=== PATIENT | male | born 1965 | race Caucasian/White ===

== ENCOUNTER 2016-11-21 16:06 | Emergency (ER) | payer SELFPAY ==
[~2016-11-21 16:06] MED LIST: ARTIFICIAL TEAR15 M1 BOTH EYES; BACTRIM,SEPT1 TABLET PO; GARAMYCIN5 M1 BOTH EYES; LIBRIUM25 MG PO; NAPROSYN500 MG PO; NAPROXEN500 MG PO; NORVASC10 MG PO; PERCOCET 5/31 TABLET PO; ULTRAM50 MG PO; ZADITOR 0.100 DROP/5 BOTH EYES; ZOFRAN ODT4 MG PO
== END 2016-11-21 17:32 | disposition left against medical advice (07) ==
LOC: EME 16:06
DX: M79.672 Pain in left foot (principal); Z53.21 Procedure and treatment not carried out due to patient leaving prior to being seen by health care provider

== ENCOUNTER 2017-01-01 13:26 | Emergency (ER) | payer SELFPAY ==
[~2017-01-01] VITALS: Ht 177.8 cm; Wt 140.0 kg
[2017-01-01 13:50] LABS: EOSINOPHIL (%) 1.2 % (0-5); EOSINOPHIL COUNT 0.1 K/uL (0-0.3); HEMATOCRIT 45.3 % (38.0-50.0); IMMATURE GRANULOCYTE (%) 0.8 % (0.0-0.7); IMMATURE GRANULOCYTE COUNT 0.1 K/uL; INSTRUMENT ABS NEUTROPHIL CT 5.7 K/uL; LYMPHOCYTE COUNT 2.1 K/uL (1.0-2.8); MCH 36.6 PG (29.0-34.0); MCHC 34.2 G/DL (30.0-36.0); MCV 107.1 FL (86-99); MEAN PLAT.VOLUME 9.3 uM^3 (9.0-12.4); MONOCYTE (%) 10.4 % (3-12); MONOCYTE COUNT 0.9 K/uL (0-0.8); NEUTROPHIL (%) 64.1 % (45-76); NEUTROPHIL COUNT 5.7 K/uL (1.8-6.4); PLATELET COUNT 157 K/uL (156-360); RBC DIS.WIDTH-SD 51.3 % (39-53); RED BLOOD COUNT 4.23 M/uL (4.00-5.50); WHITE BLOOD COUNT 8.9 K/uL (4.1-10.2)
[2017-01-01 14:01] LABS: CHLORIDE 104 mEq/L (99-109); POTASSIUM 4.1 mEq/L (3.7-5.4); SODIUM 139 mEq/L (136-147)
[2017-01-01 14:03] LABS: GLUCOSE 104 mg/dL (70-99)
[2017-01-01 14:04] LABS: ANION GAP 8 MEQ/L (2-14)
[2017-01-01 14:07] LABS: ALKALINE PHOSPHATASE 64 IU/L (3-129); GFR ESTIMATE (CALCULATED) > 59 mL/min/
[2017-01-01 14:08] LABS: UREA NITROGEN (BUN) 19 mg/dL (9-23)
[2017-01-01 14:10] LABS: URIC ACID 10.6 mg/dL (3.1-9.2)
[2017-01-01] MEDS ORDERED: NAPROSYN500 MG PO (17:54)
[2017-01-01] MEDS ORDERED: PERCOCET 5/31 TABLET PO (17:54)
[2017-01-01] MEDS ORDERED: KEFLEX500 MG PO (17:54)
[2017-01-01 18:41] VITALS: BP 149/78
== END 2017-01-01 18:45 | disposition home or self-care (01) ==
LOC: EME 13:26
PROVIDERS: Emergency Medicine
DX: M79.672 Pain in left foot (principal); J45.909 Unspecified asthma, uncomplicated; Z87.442 Personal history of urinary calculi; Z86.718 Personal history of other venous thrombosis and embolism; F17.200 Nicotine dependence, unspecified, uncomplicated
CPT/HCPCS: 73630; 80053; 83605; 84550; 85025; 93971; 99281; 99285; J0690; J1885; J3010; J7050

== ENCOUNTER 2018-01-21 11:06 | Observation (INO) | payer SELFPAY ==
[~2018-01-21] VITALS: Ht 177.8 cm; Wt 127.7 kg
[~2018-01-21 11:06] MED LIST changes: +ADVAIR HFA120 INHALA IH; +COMBIVENT RESPIM4 GM IH; +DAILY VALUE1 EACH PO; +FOLIC ACID1 MG PO; +FUROSEMIDE40 MG PO; +INCRUSE ELLI62.5 MCG IH; +KEFLEX500 MG PO; +LISINOPRIL20 MG PO; +NICOTINE PATCH1 EAC2 TD; +PREDNISONE10 MG PO; +SPIRIVA RESPIMAT4 GM IH; +SYMBICORT60 INHALAT IH; +THEOPHYLLINE400 MG PO; +THIAMINE HCL100 MG PO; +VENTOLIN HFA18 GM IH
[2018-01-21 11:47] LABS: HEMOGLOBIN 13.9 G/DL (12.5-16.6); MCH 36.2 PG (29.0-34.0); MCHC 33.9 G/DL (30.0-36.0); MCV 106.8 FL (86-99); PLATELET COUNT 154 K/uL (156-360); RBC DIS.WIDTH-CV 13.2 % (11.8-14.6); RBC DIS.WIDTH-SD 51.9 % (39-53); RED BLOOD COUNT 3.84 M/uL (4.00-5.50); WHITE BLOOD COUNT 8.3 K/uL (4.1-10.2)
[2018-01-21 11:56] LABS: CHLORIDE 105 mEq/L (99-109); SODIUM 142 mEq/L (136-147)
[2018-01-21 11:58] LABS: GLUCOSE 103 mg/dL (70-99)
[2018-01-21 12:01] LABS: CREATININE 1.7 mg/dL (0.6-1.3); GFR ESTIMATE (CALCULATED) 45 mL/min/ (58.99-99999)
[2018-01-21 12:02] LABS: UREA NITROGEN (BUN) 40 mg/dL (9-23)
[2018-01-21 12:07] LABS: TROP-I INTERPRETATION NEGATIVE; TROPONIN-I 0.03 ng/mL (0.0-0.30)
[2018-01-21 14:38] LABS: APPEARANCE CLEAR ((CLEAR)); BILIRUBIN NEGATIVE; BLOOD SMALL; COLOR STRAW ((YELLOW)); GLUCOSE (STRIP) NEGATIVE; KETONES NEGATIVE; LEUKOCYTES NEGATIVE; NITRITE NEGATIVE; PROTEIN (STRIP) NEGATIVE; SPECIFIC GRAVITY 1.013 (1.000-1.030); UROBILINOGEN 0.2 MG/DL (0.2-1.0)
[2018-01-21 14:48] LABS: BACTERIA NONE SEEN /HPF; EPITHELIAL CELLS RARE /HPF; HYALINE CASTS 0-5 /LPF; MUCUS TRACE /LPF; RED BLOOD CELLS 0-5 /HPF (0-5); UCUL ADDED? NO; WHITE BLOOD CELLS 0-5 /HPF (0-5)
[2018-01-21 15:05] LABS: TROP-I INTERPRETATION NEGATIVE; TROPONIN-I 0.04 ng/mL (0.0-0.30)
[2018-01-21] MEDS ORDERED: LISINOPRIL20 MG PO (15:59)
[2018-01-21] MEDS ORDERED: DULERA 200 MCG/13 GM IH (16:00)
[2018-01-21] MEDS ORDERED: THEOPHYLLINE600 MG PO (16:01)
[2018-01-21 16:28] LABS: MAGNESIUM 2.1 mg/dL (1.3-2.7)
[2018-01-21 16:31] VITALS: BP 141/95
[2018-01-21 19:02] VITALS: BP 147/69
[2018-01-21 23:04] VITALS: BP 142/93
[2018-01-21 23:08] LABS: TROP-I INTERPRETATION NEGATIVE; TROPONIN-I 0.06 ng/mL (0.0-0.30)
[2018-01-22 04:24] VITALS: BP 143/91
[2018-01-22 05:55] LABS: HEMATOCRIT 37.6 % (38.0-50.0); HEMOGLOBIN 12.5 G/DL (12.5-16.6); MCH 35.6 PG (29.0-34.0); MCHC 33.2 G/DL (30.0-36.0); MCV 107.1 FL (86-99); PLATELET COUNT 158 K/uL (156-360); RBC DIS.WIDTH-CV 13.3 % (11.8-14.6); RBC DIS.WIDTH-SD 52.3 % (39-53); RED BLOOD COUNT 3.51 M/uL (4.00-5.50); WHITE BLOOD COUNT 9.4 K/uL (4.1-10.2)
[2018-01-22 06:21] LABS: ALBUMIN 3.6 G/DL (3.2-4.8); ALKALINE PHOSPHATASE 53 IU/L (3-129); ALT (GPT) 14 IU/L (3-49); AST (GOT) 15 IU/L (2-34); CHLORIDE 107 MEQ/L (99-109); GFR ESTIMATE (CALCULATED) > 59 mL/min/ (58.99-99999); GLUCOSE 84 mg/dL (70-99); POTASSIUM 4.5 MEQ/L (3.7-5.4); SODIUM 140 MEQ/L (136-147); TOTAL BILIRUBIN 0.6 MG/DL (0.0-1.0); UREA NITROGEN (BUN) 33 mg/dL (9-23)
[2018-01-22 06:38] LABS: CREATININE 1.2 MG/DL (0.6-1.3)
[2018-01-22 08:31] VITALS: BP 143/69
[2018-01-22 11:11] VITALS: BP 156/77
[2018-01-22] MEDS ORDERED: ASPIR-LOW81 MG PO (14:14)
[2018-01-22 15:20] VITALS: BP 153/79
== END 2018-01-22 16:51 | disposition home or self-care (01) ==
LOC: EME 11:06 → EDOF 15:17 → 5WEST 15:17 → ENRESERV 15:19 → 5WEST 16:23
PROVIDERS: Hospitalist; Physician Assistant; Physician Assistant Medical
DX: R07.9 Chest pain, unspecified (principal); M79.605 Pain in left leg; M79.604 Pain in right leg; Z86.718 Personal history of other venous thrombosis and embolism; F10.20 Alcohol dependence, uncomplicated; N17.9 Acute kidney failure, unspecified; E87.5 Hyperkalemia; F17.210 Nicotine dependence, cigarettes, uncomplicated; E66.01 Morbid (severe) obesity due to excess calories; Z82.49 Family history of ischemic heart disease and other diseases of the circulatory system; I10 Essential (primary) hypertension; J44.9 Chronic obstructive pulmonary disease, unspecified; I71.2 Thoracic aortic aneurysm, without rupture; I87.8 Other specified disorders of veins; R91.8 Other nonspecific abnormal finding of lung field
CPT/HCPCS: 71046; 71275; 76775; 80048; 80053; 81003; 82948; 83735; 84132 91; 84484; 85027; 93005; 93925; 93970; 94640; 94640 76; 94799; 99202; 99281; 99285; G0378; J0610; J1650; J1815; J2060; J2270; J3010; J7030; J7050

== ENCOUNTER → 2018-01-30 | Outpatient (CLI) | payer SELFPAY ==
[~2018-01-30] MED LIST changes: +ASPIR-LOW81 MG PO; +DULERA 200 MCG/13 GM IH; +THEOPHYLLINE600 MG PO
== END | disposition home or self-care (01) ==
LOC: NUC 09:11
DX: R94.39 Abnormal result of other cardiovascular function study (principal)
CPT/HCPCS: 78452; 93017; A9500; J2785

== ENCOUNTER → 2018-03-19 | Outpatient (CLI) | payer SELFPAY | END | disposition home or self-care (01) | LOC: RAD 14:58 | DX: I71.2 Thoracic aortic aneurysm, without rupture (principal) | CPT/HCPCS: 71250 ==

== ENCOUNTER 2018-05-04 10:48 | Inpatient (IN) | payer SELFPAY ==
[~2018-05-04] VITALS: Ht 177.8 cm; Wt 132.4 kg
[2018-05-04 11:51] LABS: BASOPHIL (%) 0.7 % (0-1); BASOPHIL COUNT 0.1 K/uL (0-0.1); EOSINOPHIL (%) 2.3 % (0-5); EOSINOPHIL COUNT 0.2 K/uL (0-0.3); HEMATOCRIT 37.7 % (38.0-50.0); HEMOGLOBIN 12.8 G/DL (12.5-16.6); IMMATURE GRANULOCYTE (%) 0.7 % (0.0-0.7); LYMPHOCYTE COUNT 1.7 K/uL (1.0-2.8); MCH 34.8 PG (29.0-34.0); MCV 102.4 FL (86-99); MONOCYTE (%) 9.7 % (3-12); MONOCYTE COUNT 0.7 K/uL (0-0.8); NEUTROPHIL (%) 63.6 % (45-76); NEUTROPHIL COUNT 4.8 K/uL (1.8-6.4); PLATELET COUNT 151 K/uL (156-360); RBC DIS.WIDTH-CV 13.2 % (11.8-14.6); RBC DIS.WIDTH-SD 49.2 % (39-53); RED BLOOD COUNT 3.68 M/uL (4.00-5.50); WHITE BLOOD COUNT 7.5 K/uL (4.1-10.2)
[2018-05-04 12:03] LABS: ALBUMIN 4.2 g/dL (3.2-4.8); CHLORIDE 108 mEq/L (99-109); POTASSIUM 5.2 mEq/L (3.7-5.4); SODIUM 143 mEq/L (136-147)
[2018-05-04 12:06] LABS: GLUCOSE 102 mg/dL (70-99); TOTAL PROTEIN 7.5 g/dL (6.4-8.3)
[2018-05-04 12:07] LABS: TOTAL BILIRUBIN 0.7 mg/dL (0.0-1.0)
[2018-05-04 12:09] LABS: ALKALINE PHOSPHATASE 69 IU/L (3-129); CREATININE 2.6 mg/dL (0.6-1.3); GFR ESTIMATE (CALCULATED) 27 mL/min/ (58.99-99999)
[2018-05-04 12:10] LABS: UREA NITROGEN (BUN) 41 mg/dL (9-23)
[2018-05-04 12:11] LABS: AST (GOT) 24 IU/L (2-34)
[2018-05-04 12:12] LABS: ALT (GPT) 17 IU/L (3-49)
[2018-05-04 12:14] LABS: TROP-I INTERPRETATION NEGATIVE; TROPONIN-I 0.02 ng/mL (0.0-0.30)
[2018-05-04] MEDS ORDERED: LO-DOSE ASPIRIN81 M2 PO (15:00)
[2018-05-04] MEDS ORDERED: FOLIC ACID1 MG PO (15:00)
[2018-05-04] MEDS ORDERED: NICODERM CQ1 EACH TD (15:01)
[2018-05-04] MEDS ORDERED: LASIX40 MG PO (15:02)
[2018-05-04] MEDS ORDERED: DUONEB 2.5-0.5 M3 ML AEROSOL (15:03)
[2018-05-04] MEDS ORDERED: THIAMINE HCL50 MG PO (15:03)
[2018-05-04] MEDS ORDERED: BREO ELLIPTA I1 EACH IH (15:04)
[2018-05-04] MEDS ORDERED: SPIRIVA RESPIMAT4 G1 IH (15:04)
[2018-05-04] MEDS ORDERED: NEURONTIN300 MG PO (15:05)
[2018-05-04] MEDS ORDERED: CARDIZEM LA180 MG PO (15:05)
[2018-05-04] MEDS ORDERED: PEPCID AC10 MG PO (15:05)
[2018-05-04] MEDS ORDERED: CATAPRES0.2 MG PO (15:05)
[2018-05-04 17:01] VITALS: BP 162/82
[2018-05-04 18:40] LABS: TROP-I INTERPRETATION NEGATIVE; TROPONIN-I 0.02 ng/mL (0.0-0.30)
[2018-05-04 20:00] VITALS: BP 144/73
[2018-05-04 23:42] LABS: TROP-I INTERPRETATION NEGATIVE; TROPONIN-I 0.02 ng/mL (0.0-0.30)
[2018-05-05] VITALS: BP 142/84
[2018-05-05 04:00] VITALS: BP 162/88
[2018-05-05 06:26] LABS: BASOPHIL (%) 0.3 % (0-1); EOSINOPHIL (%) 0 % (0-5); HEMATOCRIT 35.9 % (38.0-50.0); HEMOGLOBIN 12.3 G/DL (12.5-16.6); IMMATURE GRANULOCYTE (%) 0.8 % (0.0-0.7); LYMPHOCYTE (%) 11.8 % (15-42); LYMPHOCYTE COUNT 0.7 K/uL (1.0-2.8); MCH 35.3 PG (29.0-34.0); MCHC 34.3 G/DL (30.0-36.0); MCV 103.2 FL (86-99); MONOCYTE (%) 5.6 % (3-12); MONOCYTE COUNT 0.3 K/uL (0-0.8); NEUTROPHIL (%) 81.5 % (45-76); PLATELET COUNT 149 K/uL (156-360); RBC DIS.WIDTH-CV 13.1 % (11.8-14.6); RBC DIS.WIDTH-SD 48.6 % (39-53); RED BLOOD COUNT 3.48 M/uL (4.00-5.50); WHITE BLOOD COUNT 6.1 K/uL (4.1-10.2)
[2018-05-05 06:50] LABS: CHLORIDE 102 MEQ/L (99-109); CREATININE 2.1 MG/DL (0.6-1.3); GFR ESTIMATE (CALCULATED) 35 mL/min/ (58.99-99999); GLUCOSE 178 mg/dL (70-99); POTASSIUM 5.2 MEQ/L (3.7-5.4); SODIUM 136 MEQ/L (136-147); UREA NITROGEN (BUN) 40 mg/dL (9-23)
[2018-05-05 06:50] LABS: TROP-I INTERPRETATION NEGATIVE; TROPONIN-I 0.01 ng/mL (0.0-0.30)
[2018-05-05 07:17] VITALS: BP 132/76
[2018-05-05 09:03] LABS: FOLIC ACID (FOLATE) > 22.0 NG/ML (5.0-22.0)
[2018-05-05 11:00] VITALS: BP 169/87
[2018-05-05 15:02] VITALS: BP 161/86
[2018-05-05 20:00] VITALS: BP 165/80
[2018-05-06] VITALS: BP 172/95
[2018-05-06 04:00] VITALS: BP 153/80
[2018-05-06 06:48] LABS: BASOPHIL (%) 0.1 % (0-1); EOSINOPHIL (%) 0 % (0-5); HEMATOCRIT 35.9 % (38.0-50.0); HEMOGLOBIN 12.2 G/DL (12.5-16.6); IMMATURE GRANULOCYTE (%) 0.7 % (0.0-0.7); LYMPHOCYTE (%) 7.8 % (15-42); LYMPHOCYTE COUNT 0.7 K/uL (1.0-2.8); MCH 34.9 PG (29.0-34.0); MCV 102.6 FL (86-99); MONOCYTE COUNT 0.5 K/uL (0-0.8); NEUTROPHIL (%) 85.4 % (45-76); NEUTROPHIL COUNT 7.3 K/uL (1.8-6.4); PLATELET COUNT 152 K/uL (156-360); RBC DIS.WIDTH-SD 47.8 % (39-53); WHITE BLOOD COUNT 8.6 K/uL (4.1-10.2)
[2018-05-06 07:11] LABS: CHLORIDE 102 MEQ/L (99-109); CREATININE 1.7 MG/DL (0.6-1.3); GFR ESTIMATE (CALCULATED) 45 mL/min/ (58.99-99999); GLUCOSE 184 mg/dL (70-99); POTASSIUM 4.9 MEQ/L (3.7-5.4); SODIUM 136 MEQ/L (136-147); UREA NITROGEN (BUN) 40 mg/dL (9-23)
[2018-05-06 07:26] VITALS: BP 145/73
[2018-05-06 12:12] VITALS: BP 159/94
[2018-05-06 16:18] VITALS: BP 146/80
[2018-05-06 19:25] VITALS: BP 166/93
[2018-05-07] VITALS (7 sets, daily range): BP systolic 144–169; BP diastolic 71–94
[2018-05-08 04:04] VITALS: BP 151/69
[2018-05-08 06:46] LABS: CHLORIDE 101 MEQ/L (99-109); CREATININE 1.6 MG/DL (0.6-1.3); GFR ESTIMATE (CALCULATED) 48 mL/min/ (58.99-99999); GLUCOSE 259 mg/dL (70-99); POTASSIUM 4.2 MEQ/L (3.7-5.4); SODIUM 137 MEQ/L (136-147); UREA NITROGEN (BUN) 43 mg/dL (9-23)
[2018-05-08 07:10] VITALS: BP 136/71
[2018-05-08] MEDS ORDERED: APRESOLINE100 MG PO (11:05)
[2018-05-08] MEDS ORDERED: GABAPENTIN300 MG PO (11:07)
[2018-05-08] MEDS ORDERED: OXYCODONE HCL5 MG PO (11:10)
[2018-05-08] MEDS ORDERED: PREDNISONE5 MG PO (11:10)
[2018-05-08 11:57] VITALS: BP 131/72
== END 2018-05-08 15:15 | disposition home or self-care (01) | DRG 683 ==
LOC: EME 10:48 → 5SOUTH 15:30 → EDOF 15:30 → ENRESERV 15:33 → 5SOUTH 16:37
PROVIDERS: Emergency Medicine; Hospitalist; Internal Medicine Nephrology
DX: N17.9 Acute kidney failure, unspecified (principal); R07.9 Chest pain, unspecified; N18.3 Chronic kidney disease, stage 3 (moderate); J44.1 Chronic obstructive pulmonary disease with (acute) exacerbation; M54.5 Low back pain; G89.29 Other chronic pain; I71.2 Thoracic aortic aneurysm, without rupture; E66.01 Morbid (severe) obesity due to excess calories; R09.89 Other specified symptoms and signs involving the circulatory and respiratory systems; R09.02 Hypoxemia; I12.9 Hypertensive chronic kidney disease with stage 1 through stage 4 chronic kidney disease, or unspecified chronic kidney disease; R91.8 Other nonspecific abnormal finding of lung field; F17.210 Nicotine dependence, cigarettes, uncomplicated; F10.20 Alcohol dependence, uncomplicated; E87.5 Hyperkalemia; G47.33 Obstructive sleep apnea (adult) (pediatric); Z68.41 Body mass index [BMI] 40.0-44.9, adult; Z90.10 Acquired absence of unspecified breast and nipple; I83.90 Asymptomatic varicose veins of unspecified lower extremity; Z86.718 Personal history of other venous thrombosis and embolism; Z99.81 Dependence on supplemental oxygen
CPT/HCPCS: 71045; 71250; 74176; 76770; 80048; 80053; 81003; 82607; 82746; 83880; 84484; 85025; 93005; 93925; 93970; 94640; 94799; 97530 GO; 99281; 99285; J1644; J7030; J7512